=== PATIENT | female | born 1975 | race Caucasian/White ===

== ENCOUNTER 2020-01-15 15:34 | Emergency (ER) | payer SELFPAY ==
[~2020-01-15] VITALS: Ht 157.5 cm; Wt 63.6 kg
[2020-01-15 15:38] VITALS: BP 146/91; Ht 157.5 cm; Wt 63.6 kg
[2020-01-15] MEDS ORDERED: THORAZINE10 MG (15:39)
[2020-01-15] MEDS ORDERED: THORAZINE10 MG PO (15:53)
== END 2020-01-15 16:04 | disposition home or self-care (01) ==
LOC: D.ER 15:34
DX: F43.10 Post-traumatic stress disorder, unspecified (principal); F41.9 Anxiety disorder, unspecified; Z76.0 Encounter for issue of repeat prescription

== ENCOUNTER 2020-03-24 19:45 | Emergency (ER) | payer SELFPAY ==
[~2020-03-24] VITALS: Ht 157.5 cm; Wt 50.0 kg
[~2020-03-24 19:45] MED LIST: THORAZINE10 MG; THORAZINE10 MG PO
== END 2020-03-24 21:00 | disposition home or self-care (01) ==
LOC: D.ER 19:45
DX: F15.10 Other stimulant abuse, uncomplicated (principal)